=== PATIENT | female | born 1960 | race Caucasian/White ===

== ENCOUNTER 2017-06-03 15:58 | Emergency (ER) | payer MEDICARE, MEDICAID ==
[~2017-06-03] VITALS: Ht 162.6 cm; Wt 72.6 kg
[~2017-06-03 15:58] MED LIST: AMLO10TA2 PO; ASPI81CH43 PO; Atorvastatin Calcium PO; BENA40TA7 PO; CALC0.25; DOCU-94 PO; EPOE20006; FOLITAB45 OR; MAGN400T21 PO; ONDA4TAB5 PO; POT CHLORIDE; POT20T PO; [UNRECOGNIZED DRUG - OTHER]
[2017-06-04 00:05] VITALS: BP 117/74
== END 2017-06-04 00:24 | disposition home or self-care (01) ==
LOC: ER 16:08
DX: J40 Bronchitis, not specified as acute or chronic (principal); N18.9 Chronic kidney disease, unspecified
CPT/HCPCS: 71045

== ENCOUNTER 2021-05-10 19:35 | Inpatient (IN) | payer MEDICARE, MEDICAID ==
[~2021-05-10] VITALS: Ht 157.5 cm; Wt 71.0 kg
[~2021-05-10 19:35] MED LIST changes: +AMLO-496 PO; -AMLO10TA2 PO; -BENA40TA7 PO; +BENA40TA8 PO; +MAGN241.4 PO; -MAGN400T21 PO; +ONDA-144 PO; -ONDA4TAB5 PO
[2021-05-10 21:06] LABS: Basophils # (auto) 0 10 ^3/uL (0-0.2); Basophils % (auto) 0.1 % (0.0-2.0); Eosinophils # (auto) 0 10 ^3/uL (0-0.8); Eosinophils % (auto) 0.6 % (0.0-7.0); Hematocrit 37.4 % (36.0-46.0); Lymphocytes # (auto) 0.8 10 ^3/uL (0.4-5.4); Lymphocytes % (auto) 19.6 % (10.0-50.0); Mean Corpuscular Hemoglobin 30.4 pg (28.0-32.0); Mean Corpuscular Hgb Conc. 34.6 g/dL (32.0-36.0); Mean Corpuscular Volume 87.8 fL (80.0-100.0); Monocytes # (auto) 0.3 10 ^3/uL (0-1.3); Monocytes % (auto) 8.6 % (0.0-12.0); Neutrophils # (auto) 2.8 10 ^3/uL (1.6-8.6); Neutrophils % (auto) 71.1 % (37.0-80.0); Nucleated Red Blood Cells % 0.2 %; Red Blood Cells 4.26 10^6/uL (4.0-5.20); Red Cell Distribution Width 12.9 % (11.8-14.3)
[2021-05-10 21:28] LABS: Albumin 2.5 g/dL (3.4-5.0); BUN/Creatinine Ratio 26.1; Calcium 8.4 mg/dL (8.5-10.1); Potassium 3.9 mmol/L (3.5-5.1)
[2021-05-10 21:32] LABS: Bilirubin, Total 0.8 mg/dL (0.2-1.0); Total Protein 6.2 g/dL (6.4-8.2)
[2021-05-10] MEDS ORDERED: DexAMETHasone SOD PHOS 10MG/1ML VIAL INJ IV ONE (22:30)
[2021-05-10] MEDS ORDERED: DOCUSATE SOD 100 MG CAP PO PRN (23:45)
[2021-05-10] MEDS ORDERED: NITROGLYCERIN 0.4 MG SL TAB SL PRN (23:45)
[2021-05-10] MEDS ORDERED: ALBUMIN 25% 100 ML IV ONE (23:45)
[2021-05-10] MEDS ORDERED: ONDANSETRON HCL 4 MG/2 ML VIAL IV PRN (23:45)
[2021-05-10] MEDS ORDERED: SODIUM CHLORIDE 0.9% 1,000 ML IV SCH (23:45)
[2021-05-11 01:13] VITALS: BP 123/67
[2021-05-11] MEDS ORDERED: TACR1CAP4 PO (01:32)
[2021-05-11] MEDS ORDERED: MYCO250C4 PO (01:32)
[2021-05-11] MEDS ORDERED: PRE5T PO (01:32)
[2021-05-11] MEDS ORDERED: PANT40T PO (02:59)
[2021-05-11] MEDS ORDERED: CINA30TA14 PO (02:59)
[2021-05-11] MEDS ORDERED: ATOR10TA52 PO (02:59)
[2021-05-11 05:21] VITALS: BP 133/75
[2021-05-11 07:24] LABS: Red Cell Distribution Width 13.3 % (11.8-14.3)
[2021-05-11 07:26] LABS: Hematocrit 35.9 % (36.0-46.0); Hemoglobin 12.8 g/dL (12.2-16.2); Mean Corpuscular Hgb Conc. 35.5 g/dL (32.0-36.0); Mean Corpuscular Volume 87.1 fL (80.0-100.0); Red Blood Cells 4.12 10^6/uL (4.0-5.20)
[2021-05-11 07:36] LABS: Potassium 4.2 mmol/L (3.5-5.1)
[2021-05-11 07:42] LABS: Albumin 2.9 g/dL (3.4-5.0); Bilirubin, Total 0.8 mg/dL (0.2-1.0); Calcium 8.5 mg/dL (8.5-10.1); Total Protein 6.2 g/dL (6.4-8.2)
[2021-05-11 08:12] LABS: White Blood Cell 1.7 10^3/uL (4.4-10.8)
[2021-05-11 08:13] LABS: Basophils % (manual) 0 (0.0-2.0); Eosinophils % (manual) 0 (0-7); Metamyelocytes % 0
[2021-05-11 08:14] LABS: Blast Cells 0; Myelocytes % 0; Promyelocytes % 0; Reactive Lymphocytes 0
[2021-05-11 09:00] VITALS: BP 115/61
[2021-05-11] MEDS: DexAMETHasone SOD PHOS 10MG/1ML VIAL INJ IV SCH (09:59)
[2021-05-11] MEDS: FAMOTIDINE (10MG/ML) 2ML VL IV SCH ×2 (09:59→21:36)
[2021-05-11] MEDS: CHOLECALCIFEROL (VITD3) 2,000 UNIT CAP/TAB PO SCH (10:00)
[2021-05-11] MEDS: AZITHROMYCIN 500MG/ 250ML 250 ML IV SCH (10:00)
[2021-05-11] MEDS: ASCORBIC ACID 1,000 MG TAB PO SCH (10:00)
[2021-05-11] MEDS: ASPirin 81 mg TAB PO SCH (10:00)
[2021-05-11] MEDS ORDERED: ENOXAPARIN SOD 40 MG/0.4 ML SYRINGE SC SCH (10:00)
[2021-05-11] MEDS: BUDESONIDE (INHALATION) 180 MCG IH IN SCH ×2 (10:00→22:00)
[2021-05-11] MEDS: ZINC SULFATE 220mg CAP or TAB PO SCH (10:00)
[2021-05-11] MEDS: MULTIPLE VITAMIN TAB PO SCH (10:00)
[2021-05-11 13:00] VITALS: BP 121/66
[2021-05-11] MEDS ORDERED: REMDESIVIR PER PHARMACY 0 ML IV SCH (13:00)
[2021-05-11] MEDS ORDERED: FUROSEMIDE 20 MG/2 ML VIAL IV ONE (13:00)
[2021-05-11] MEDS ORDERED: cefTRIAXone 1GM/50ML D5W 50 ML IV ONE (13:00)
[2021-05-11] MEDS: TACROLIMUS 1 MG CAP PO SCH ×2 (13:00→22:00)
[2021-05-11] MEDS: MYCOPHENOLATE 500 MG TAB PO SCH ×2 (14:15→21:36)
[2021-05-11] MEDS ORDERED: REMDESIVIR 200 MG in NS 210ml LOADING DOSE ADULT IV ONE (15:00)
[2021-05-11 15:50] LABS: Band Neutrophils % (manual) 1; Lymphocytes % (manual) 16 (10.0-50.0); Monocytes % (manual) 5 (0-12)
[2021-05-11 17:00] VITALS: BP 129/69
[2021-05-11 18:23] LABS: Urine Bacteria FEW /hpf (None Seen); Urine Blood Negative /uL (Negative); Urine Specific Gravity 1.009 (1.001-1.035); Urine WBC <1 /hpf (0 - 5)
[2021-05-11 21:25] VITALS: BP 134/80
[2021-05-11] MEDS: ENOXAPARIN SOD 40 MG/0.4 ML SYRINGE SC SCH (21:37)
[2021-05-12 05:00] VITALS: BP 129/63
[2021-05-12 05:46] LABS: Basophils # (auto) 0 10 ^3/uL (0-0.2); Basophils % (auto) 0.1 % (0.0-2.0); Eosinophils # (auto) 0 10 ^3/uL (0-0.8); Hematocrit 37.5 % (36.0-46.0); Lymphocytes # (auto) 0.6 10 ^3/uL (0.4-5.4); Lymphocytes % (auto) 12.1 % (10.0-50.0); Mean Corpuscular Hemoglobin 30.2 pg (28.0-32.0); Mean Corpuscular Hgb Conc. 34.7 g/dL (32.0-36.0); Mean Corpuscular Volume 86.9 fL (80.0-100.0); Monocytes # (auto) 0.4 10 ^3/uL (0-1.3); Monocytes % (auto) 8.5 % (0.0-12.0); Neutrophils # (auto) 4.2 10 ^3/uL (1.6-8.6); Neutrophils % (auto) 79.3 % (37.0-80.0); Nucleated Red Blood Cells % 0.1 %; Red Blood Cells 4.31 10^6/uL (4.0-5.20); Red Cell Distribution Width 13.1 % (11.8-14.3); White Blood Cell 5.2 10^3/uL (4.4-10.8)
[2021-05-12] MEDS: BUDESONIDE (INHALATION) 180 MCG IH IN SCH ×2 (05:48→22:12)
[2021-05-12] MEDS: ALBUTEROL SULF HFA 90MCG INH 200DOSE IN PRN ×2 (05:48→22:38)
[2021-05-12 05:57] LABS: Albumin 2.7 g/dL (3.4-5.0); BUN/Creatinine Ratio 25.4; Potassium 3.8 mmol/L (3.5-5.1)
[2021-05-12 05:59] LABS: Bilirubin, Total 0.6 mg/dL (0.2-1.0)
[2021-05-12 09:00] VITALS: BP 128/61
[2021-05-12] MEDS: AZITHROMYCIN 500MG/ 250ML 250 ML IV SCH (11:00)
[2021-05-12] MEDS: FAMOTIDINE (10MG/ML) 2ML VL IV SCH ×2 (11:12→21:31)
[2021-05-12] MEDS: FUROSEMIDE 20 MG/2 ML VIAL IV SCH (11:12)
[2021-05-12] MEDS: cefTRIAXone 1GM/50ML D5W 50 ML IV SCH (11:12)
[2021-05-12] MEDS: DexAMETHasone SOD PHOS 10MG/1ML VIAL INJ IV SCH (11:12)
[2021-05-12] MEDS: MULTIPLE VITAMIN TAB PO SCH (11:13)
[2021-05-12] MEDS: MYCOPHENOLATE 500 MG TAB PO SCH ×2 (11:13→21:31)
[2021-05-12] MEDS: ASPirin 81 mg TAB PO SCH (11:13)
[2021-05-12] MEDS: ZINC SULFATE 220mg CAP or TAB PO SCH (11:13)
[2021-05-12] MEDS: ASCORBIC ACID 1,000 MG TAB PO SCH (11:14)
[2021-05-12] MEDS: CHOLECALCIFEROL (VITD3) 2,000 UNIT CAP/TAB PO SCH (11:14)
[2021-05-12] MEDS: ENOXAPARIN SOD 40 MG/0.4 ML SYRINGE SC SCH ×2 (11:20→21:32)
[2021-05-12] MEDS: TACROLIMUS 1 MG CAP PO SCH ×2 (11:21→21:31)
[2021-05-12 12:41] VITALS: BP 113/74
[2021-05-12] MEDS: REMDESIVIR 100mg 100 MG in SODIUM CHL 0.9% 230 ML IV SCH (16:52)
[2021-05-12 22:00] VITALS: BP 132/64
[2021-05-13 05:00] VITALS: BP 115/66
[2021-05-13 05:25] LABS: Basophils # (auto) 0 10 ^3/uL (0-0.2); Basophils % (auto) 0.1 % (0.0-2.0); Eosinophils # (auto) 0 10 ^3/uL (0-0.8); Hematocrit 39.4 % (36.0-46.0); Hemoglobin 13.5 g/dL (12.2-16.2); Lymphocytes # (auto) 0.6 10 ^3/uL (0.4-5.4); Lymphocytes % (auto) 8.9 % (10.0-50.0); Mean Corpuscular Hemoglobin 29.9 pg (28.0-32.0); Mean Corpuscular Hgb Conc. 34.2 g/dL (32.0-36.0); Mean Corpuscular Volume 87.4 fL (80.0-100.0); Monocytes # (auto) 0.5 10 ^3/uL (0-1.3); Monocytes % (auto) 7.1 % (0.0-12.0); Neutrophils # (auto) 5.5 10 ^3/uL (1.6-8.6); Neutrophils % (auto) 83.9 % (37.0-80.0); Nucleated Red Blood Cells % 0.1 %; Red Blood Cells 4.51 10^6/uL (4.0-5.20); Red Cell Distribution Width 13.2 % (11.8-14.3); White Blood Cell 6.5 10^3/uL (4.4-10.8)
[2021-05-13 05:41] LABS: Potassium 3.9 mmol/L (3.5-5.1)
[2021-05-13 05:58] LABS: Albumin 2.9 g/dL (3.4-5.0); BUN/Creatinine Ratio 32.8; Bilirubin, Total 0.6 mg/dL (0.2-1.0); Calcium 8.9 mg/dL (8.5-10.1); Total Protein 5.4 g/dL (6.4-8.2)
[2021-05-13] MEDS: BUDESONIDE (INHALATION) 180 MCG IH IN SCH ×2 (06:35→20:06)
[2021-05-13] MEDS: ALBUTEROL SULF HFA 90MCG INH 200DOSE IN PRN ×2 (07:21→20:06)
[2021-05-13 08:57] VITALS: BP 116/61
[2021-05-13] MEDS: DexAMETHasone SOD PHOS 10MG/1ML VIAL INJ IV SCH (09:57)
[2021-05-13] MEDS: cefTRIAXone 1GM/50ML D5W 50 ML IV SCH (09:57)
[2021-05-13] MEDS: FAMOTIDINE (10MG/ML) 2ML VL IV SCH ×2 (09:58→21:58)
[2021-05-13] MEDS: FUROSEMIDE 20 MG/2 ML VIAL IV SCH (09:58)
[2021-05-13] MEDS: ZINC SULFATE 220mg CAP or TAB PO SCH (09:59)
[2021-05-13] MEDS: MYCOPHENOLATE 500 MG TAB PO SCH ×2 (09:59→21:59)
[2021-05-13] MEDS: ASPirin 81 mg TAB PO SCH (09:59)
[2021-05-13] MEDS: ASCORBIC ACID 1,000 MG TAB PO SCH (10:00)
[2021-05-13] MEDS: TACROLIMUS 1 MG CAP PO SCH ×2 (10:00→21:59)
[2021-05-13] MEDS: CHOLECALCIFEROL (VITD3) 2,000 UNIT CAP/TAB PO SCH (10:00)
[2021-05-13] MEDS: MULTIPLE VITAMIN TAB PO SCH (10:00)
[2021-05-13] MEDS: ENOXAPARIN SOD 40 MG/0.4 ML SYRINGE SC SCH ×2 (10:01→21:59)
[2021-05-13] MEDS: AZITHROMYCIN 500MG/ 250ML 250 ML IV SCH (12:32)
[2021-05-13 13:00] VITALS: BP 131/67
[2021-05-13] MEDS ORDERED: DEXTROSE (50%) 50ML SYRG IV PRN (14:30)
[2021-05-13] MEDS: REMDESIVIR 100mg 100 MG in SODIUM CHL 0.9% 230 ML IV SCH (16:10)
[2021-05-13 17:00] VITALS: BP 125/72
[2021-05-13] MEDS: ACCU-CHEK COMFORT CURVE STRIP VI SCH ×2 (17:00→21:59)
[2021-05-13] MEDS: InsuLIN REG 1unit/0.01ml Soln (100units/ml) SC SCH ×2 (18:08→22:00)
[2021-05-13 22:00] VITALS: BP 135/97
[2021-05-14 05:00] VITALS: BP 120/69
[2021-05-14 05:58] LABS: Basophils # (auto) 0 10 ^3/uL (0-0.2); Basophils % (auto) 0.1 % (0.0-2.0); Eosinophils # (auto) 0 10 ^3/uL (0-0.8); Hemoglobin 13.7 g/dL (12.2-16.2); Lymphocytes # (auto) 0.7 10 ^3/uL (0.4-5.4); Lymphocytes % (auto) 11.1 % (10.0-50.0); Mean Corpuscular Hemoglobin 29.8 pg (28.0-32.0); Mean Corpuscular Hgb Conc. 34.2 g/dL (32.0-36.0); Mean Corpuscular Volume 87.2 fL (80.0-100.0); Monocytes # (auto) 0.6 10 ^3/uL (0-1.3); Monocytes % (auto) 9.5 % (0.0-12.0); Neutrophils # (auto) 5.2 10 ^3/uL (1.6-8.6); Neutrophils % (auto) 79.3 % (37.0-80.0); Nucleated Red Blood Cells % 0.1 %; Red Blood Cells 4.59 10^6/uL (4.0-5.20); Red Cell Distribution Width 12.8 % (11.8-14.3); White Blood Cell 6.6 10^3/uL (4.4-10.8)
[2021-05-14] MEDS: ACCU-CHEK COMFORT CURVE STRIP VI SCH ×4 (06:25→23:00)
[2021-05-14] MEDS: InsuLIN REG 1unit/0.01ml Soln (100units/ml) SC SCH ×5 (06:25→23:02)
[2021-05-14] MEDS: ALBUTEROL SULF HFA 90MCG INH 200DOSE IN PRN ×2 (06:39→19:35)
[2021-05-14] MEDS: BUDESONIDE (INHALATION) 180 MCG IH IN SCH ×2 (06:39→19:35)
[2021-05-14 06:43] LABS: Albumin 2.8 g/dL (3.4-5.0); BUN/Creatinine Ratio 32.8; Calcium 9.2 mg/dL (8.5-10.1); Potassium 3.3 mmol/L (3.5-5.1)
[2021-05-14 06:46] LABS: Bilirubin, Total 0.6 mg/dL (0.2-1.0); Total Protein 5.7 g/dL (6.4-8.2)
[2021-05-14] MEDS: Nepro With Carbsteady ButterPecan 8oz Carton PO SCH ×3 (08:00→18:14)
[2021-05-14 09:00] VITALS: BP 100/53
[2021-05-14] MEDS: AZITHROMYCIN 500MG/ 250ML 250 ML IV SCH (10:30)
[2021-05-14] MEDS: DexAMETHasone SOD PHOS 10MG/1ML VIAL INJ IV SCH (10:30)
[2021-05-14] MEDS: FAMOTIDINE (10MG/ML) 2ML VL IV SCH ×2 (10:30→22:00)
[2021-05-14] MEDS: cefTRIAXone 1GM/50ML D5W 50 ML IV SCH (10:30)
[2021-05-14] MEDS: ASPirin 81 mg TAB PO SCH (10:31)
[2021-05-14] MEDS: ENOXAPARIN SOD 40 MG/0.4 ML SYRINGE SC SCH ×2 (10:31→23:00)
[2021-05-14] MEDS: TACROLIMUS 1 MG CAP PO SCH ×2 (10:31→22:59)
[2021-05-14] MEDS: MULTIPLE VITAMIN TAB PO SCH (10:31)
[2021-05-14] MEDS: CHOLECALCIFEROL (VITD3) 2,000 UNIT CAP/TAB PO SCH (10:31)
[2021-05-14] MEDS: MYCOPHENOLATE 500 MG TAB PO SCH ×2 (11:52→22:57)
[2021-05-14] MEDS ORDERED: POTASSIUM CHL 20 Meq TABLET PO ONE (12:30)
[2021-05-14 13:03] VITALS: BP 119/68
[2021-05-14] MEDS: REMDESIVIR 100mg 100 MG in SODIUM CHL 0.9% 230 ML IV SCH (15:30)
[2021-05-14 17:00] VITALS: BP 124/60
[2021-05-14 21:50] VITALS: BP 123/58
[2021-05-14] MEDS ORDERED: ATORVASTATIN 20 MG TAB PO SCH (22:00)
[2021-05-15 05:00] VITALS: BP 108/63
[2021-05-15 06:06] LABS: Basophils # (auto) 0 10 ^3/uL (0-0.2); Basophils % (auto) 0.1 % (0.0-2.0); Eosinophils # (auto) 0 10 ^3/uL (0-0.8); Eosinophils % (auto) 0.1 % (0.0-7.0); Hematocrit 38.9 % (36.0-46.0); Hemoglobin 13.5 g/dL (12.2-16.2); Lymphocytes # (auto) 0.8 10 ^3/uL (0.4-5.4); Lymphocytes % (auto) 9.2 % (10.0-50.0); Mean Corpuscular Hemoglobin 30.5 pg (28.0-32.0); Mean Corpuscular Hgb Conc. 34.7 g/dL (32.0-36.0); Monocytes # (auto) 0.9 10 ^3/uL (0-1.3); Monocytes % (auto) 9.9 % (0.0-12.0); Neutrophils % (auto) 80.7 % (37.0-80.0); Red Blood Cells 4.42 10^6/uL (4.0-5.20); Red Cell Distribution Width 12.8 % (11.8-14.3); White Blood Cell 8.7 10^3/uL (4.4-10.8)
[2021-05-15 06:24] LABS: Potassium 3.9 mmol/L (3.5-5.1)
[2021-05-15 06:31] LABS: Albumin 2.6 g/dL (3.4-5.0); BUN/Creatinine Ratio 41.7; Bilirubin, Total 0.7 mg/dL (0.2-1.0); Calcium 8.8 mg/dL (8.5-10.1); Total Protein 5.5 g/dL (6.4-8.2)
[2021-05-15] MEDS: ACCU-CHEK COMFORT CURVE STRIP VI SCH ×3 (07:03→17:00)
[2021-05-15] MEDS: InsuLIN REG 1unit/0.01ml Soln (100units/ml) SC SCH ×3 (07:04→17:00)
[2021-05-15] MEDS: BUDESONIDE (INHALATION) 180 MCG IH IN SCH (07:19)
[2021-05-15] MEDS: ALBUTEROL SULF HFA 90MCG INH 200DOSE IN PRN (07:19)
[2021-05-15] MEDS: Nepro With Carbsteady ButterPecan 8oz Carton PO SCH ×3 (08:00→18:06)
[2021-05-15 08:37] VITALS: BP 97/55
[2021-05-15] MEDS: cefTRIAXone 1GM/50ML D5W 50 ML IV SCH (09:00)
[2021-05-15] MEDS: MYCOPHENOLATE 500 MG TAB PO SCH (10:00)
[2021-05-15] MEDS: MULTIPLE VITAMIN TAB PO SCH (10:00)
[2021-05-15] MEDS: TACROLIMUS 1 MG CAP PO SCH (10:00)
[2021-05-15] MEDS: ASPirin 81 mg TAB PO SCH (10:00)
[2021-05-15] MEDS: DexAMETHasone SOD PHOS 10MG/1ML VIAL INJ IV SCH (10:00)
[2021-05-15] MEDS: ENOXAPARIN SOD 40 MG/0.4 ML SYRINGE SC SCH (10:00)
[2021-05-15] MEDS: FAMOTIDINE (10MG/ML) 2ML VL IV SCH (10:00)
[2021-05-15] MEDS: AZITHROMYCIN 500MG/ 250ML 250 ML IV SCH (10:00)
[2021-05-15] MEDS: CHOLECALCIFEROL (VITD3) 2,000 UNIT CAP/TAB PO SCH (10:00)
[2021-05-15 11:52] VITALS: BP 92/53
[2021-05-15] MEDS: REMDESIVIR 100mg 100 MG in SODIUM CHL 0.9% 230 ML IV SCH (15:00)
[2021-05-15 16:39] VITALS: BP 101/61
[2021-05-15 19:30] VITALS: BP 120/58
== END 2021-05-15 19:30 | disposition home or self-care (01) | DRG 871 ==
LOC: ER 19:35 → EDBD 19:35 → TELE 23:31 → TELE-EAST 23:51 → TELE-E-ADS 05-13 20:23
PROVIDERS: ADMIT Nurse Practitioner Family; ATTEND Internal Medicine
PROC: XW033E5 Introduction of Remdesivir Anti-infective into Peripheral Vein, Percutaneous Approach, New Technology Group 5 (ICD-10-PCS; principal; 2021-05-11)
DX: A41.89 Other specified sepsis (principal); U07.1 COVID-19; J12.82 Pneumonia due to coronavirus disease 2019; J96.01 Acute respiratory failure with hypoxia; N18.6 End stage renal disease; Z94.0 Kidney transplant status; I12.0 Hypertensive chronic kidney disease with stage 5 chronic kidney disease or end stage renal disease; D89.839 Cytokine release syndrome, grade unspecified; E88.09 Other disorders of plasma-protein metabolism, not elsewhere classified; R65.20 Severe sepsis without septic shock; E11.22 Type 2 diabetes mellitus with diabetic chronic kidney disease; E78.5 Hyperlipidemia, unspecified; F32.A Depression, unspecified; I25.10 Atherosclerotic heart disease of native coronary artery without angina pectoris; Z91.19 Patient's noncompliance with other medical treatment and regimen; R00.1 Bradycardia, unspecified; Z88.1 Allergy status to other antibiotic agents; Z88.5 Allergy status to narcotic agent
CPT/HCPCS: 36415; 36600; 70450; 71045; 80053; 80197; 81001; 82728; 82805; 82962; 83036; 83605; 83615; 83735; 83880; 84443; 84484; 85007; 85025; 85027; 85379; 86141; 87040; 87426; 93005; 93306; 93970; 94640; 96365; 96372; 96375; 97163; 99291; G0378; J0696; J1100; J1815; J3490; J7507; J7517; P9047

== ENCOUNTER 2023-05-23 15:22 | Inpatient (IN) | payer OTHER, MEDICAID ==
[~2023-05-23] VITALS: Ht 160 cm; Wt 67.0 kg
[~2023-05-23 15:22] MED LIST changes: -AMLO-496 PO; -ASPI81CH43 PO; +ATOR10TA52 PO; -Atorvastatin Calcium PO; -BENA40TA8 PO; -CALC0.25; +CINA30TA14 PO; -DOCU-94 PO; -EPOE20006; -FOLITAB45 OR; +MYCO250C4 PO; -ONDA-144 PO; +PANT40T PO; -POT CHLORIDE; -POT20T PO; +PRE5T PO; +TACR1CAP4 PO; -[UNRECOGNIZED DRUG - OTHER]
[2023-05-23] MEDS: DEXTROSE (50%) 50ML SYRG IV ONE (15:44)
[2023-05-23] MEDS: SODIUM CHLORIDE 0.9% 1,000 ML IVB ONE (15:44)
[2023-05-23 15:59] VITALS: PULSE 97; RESP 21; O2SAT 94
[2023-05-23 16:26] LABS: Amphetamine Screen, Urine Neg (NEGATIVE); Barbiturate Scree,Urine Neg (NEGATIVE); Benzodiazephine Screen, Urine Neg (NEGATIVE); Cannabinoid Screen, Urine Neg (NEGATIVE); Cocaine Screen, Urine Neg (NEGATIVE); Opiate Scree,Urine Neg (NEGATIVE); Phencyclidine Screen, Urine Neg (NEGATIVE); Urine Bacteria NONE SEEN /hpf (None Seen); Urine Blood Negative /uL (Negative); Urine Clarity HAZY (Clear); Urine Color Yellow (Yellow); Urine Mucus FEW (None Seen); Urine Protein, UAD 1+ (Negative); Urine Specific Gravity 1.026 (1.001-1.035); Urine WBC 64 /hpf (0 - 5)
[2023-05-23 16:27] LABS: Basophils # (auto) 0 10 ^3/uL (0-0.2); Basophils % (auto) 0.3 % (0.0-2.0); Hemoglobin 9.1 g/dL (12.2-16.2); Lymphocytes # (auto) 0.5 10 ^3/uL (0.4-5.4); White Blood Cell 10.9 10^3/uL (4.4-10.8)
[2023-05-23 16:28] LABS: Eosinophils # (auto) 0 10 ^3/uL (0-0.8); Eosinophils % (auto) 0.3 % (0.0-7.0); Hematocrit 28.7 % (36.0-46.0); Lymphocytes % (auto) 4.9 % (10.0-50.0); Mean Corpuscular Hgb Conc. 31.6 g/dL (32.0-36.0); Mean Corpuscular Volume 85.3 fL (80.0-100.0); Monocytes # (auto) 0.8 10 ^3/uL (0-1.3); Monocytes % (auto) 7.6 % (0.0-12.0); Neutrophils # (auto) 9.5 10 ^3/uL (1.6-8.6); Neutrophils % (auto) 86.9 % (37.0-80.0); Red Blood Cells 3.37 10^6/uL (4.0-5.20); Red Cell Distribution Width 16.1 % (11.8-14.3)
[2023-05-23 16:42] LABS: INR 1.92 (0.9-1.15); Partial Thromboplastin Time 35.6 SEC (24.5-34.5); Prothrombin Time 19.3 sec (9.3-11.8)
[2023-05-23 16:47] LABS: Alanine Aminotransferase 77 U/L (7-40); Albumin 2.5 g/dL (3.2-4.8); Alkaline Phosphatase 495 U/L (46-116); Anion Gap 9 (5-15); Aspartate Aminotransferase 177 U/L (13-40); BUN/Creatinine Ratio 21.3 (10.0-20.0); Bilirubin, Total 1.1 mg/dL (0.2-1.0); Blood Urea Nitrogen 13 mg/dL (9-23); Calcium 7.2 mg/dL (8.7-10.4); Carbon Dioxide 22 mmol/L (20-30); Chloride 99 mmol/L (98-107); Glucose 335 mg/dL (74-106); Magnesium 1.3 mg/dL (1.6-2.6); Potassium 4.4 mmol/L (3.5-5.1); Sodium 130 mmol/L (136-145); Total Protein 4.2 g/dL (5.7-8.2)
[2023-05-23 17:10] LABS: Lactic Acid w/Reflex 3.6 mmol/L (0.4-2.0)
[2023-05-23 17:45] LABS: Base Excess -2.4 mmol/L (-2.0-2.0)
[2023-05-23] MEDS: MAGNESIUM SULFATE 1GM/100ML 100 ML IV SCH (17:45)
[2023-05-23] MEDS ORDERED: MULT-1188 PO (18:36)
[2023-05-23] MEDS ORDERED: MYCO200S PO (18:36)
[2023-05-23] MEDS ORDERED: METF-370 PO (18:36)
[2023-05-23] MEDS ORDERED: FOLI400T15 PO (18:36)
[2023-05-23] MEDS ORDERED: APIX5TAB PO (18:36)
[2023-05-23] MEDS ORDERED: PRE1T PO (18:36)
[2023-05-23] MEDS ORDERED: MAGN400T40 PO (18:36)
[2023-05-23] MEDS ORDERED: PANT40TA2 PO (18:36)
[2023-05-23] MEDS ORDERED: LACTULOSE 20Gm/30ML SOLN PO PRN (18:45)
[2023-05-23] MEDS: cefTRIAXone 1GM/50ML D5W 50 ML IV SCH (19:14)
[2023-05-23 19:30] VITALS: PULSE 98; RESP 17; O2SAT 100
[2023-05-23] MEDS ORDERED: MORPHINE SULFATE INJ 2 MG/ml SYRG IV PRN (20:00)
[2023-05-23] MEDS ORDERED: NITROGLYCERIN 0.4 MG SL TAB SL PRN (20:00)
[2023-05-23] MEDS: SODIUM CHLORIDE 0.9% 500 ML IV ONE (20:00)
[2023-05-23] MEDS: APIXABAN 5 MG TAB PO SCH (21:16)
[2023-05-23] MEDS: MYCOPHENOLATE 250 MG CAP PO SCH (21:16)
[2023-05-23] MEDS: ATORVASTATIN 20 MG TAB PO SCH (21:17)
[2023-05-23] MEDS: MULTIPLE VITAMINS W/ MINERALS TAB PO SCH (21:18)
[2023-05-23] MEDS: TACROLIMUS 1 MG CAP PO SCH (21:18)
[2023-05-23 21:41] LABS: Lactic Acid w/Reflex 2.9 mmol/L (0.4-2.0)
[2023-05-23 23:08] LABS: Lactic Acid w/Reflex 3.1 mmol/L (0.4-2.0)
[2023-05-23 23:11] VITALS: BP 109/69; PULSE 67; RESP 18; TEMP 98.3; O2SAT 92
[2023-05-24] VITALS (41 sets, daily range): BP systolic 81–119; BP diastolic 49–79; PULSE 78–104; RESP 15–22; TEMP 98.2–99.5; O2SAT 83–100
[2023-05-24] MEDS: SODIUM CHLORIDE 0.9% 500 ML IV ONE ×2 (00:16→03:30)
[2023-05-24] MEDS: CINACALCET HYDROCHLORIDE 30 MG TAB PO SCH (10:00)
[2023-05-24] MEDS ORDERED: MAGNESIUM OXIDE 400 MG TAB PO SCH (10:00)
[2023-05-24] MEDS: PANTOPRAZOLE 40 MG TAB PO SCH (10:00)
[2023-05-24] MEDS: predniSONE 5 MG TAB PO SCH (10:00)
[2023-05-24] MEDS: OPTISON 3ml Vial for INJ IV ONE (11:15)
[2023-05-24] MEDS ORDERED: ENOXAPARIN SOD 80 MG/0.8ML SYRINGE SC SCH (13:45)
[2023-05-24 14:01] LABS: Basophils # (auto) 0 10 ^3/uL (0-0.2); Basophils % (auto) 0.3 % (0.0-2.0); Eosinophils # (auto) 0.1 10 ^3/uL (0-0.8); Eosinophils % (auto) 0.4 % (0.0-7.0); Hemoglobin 10.6 g/dL (12.2-16.2)
[2023-05-24 14:04] LABS: Lymphocytes # (auto) 0.9 10 ^3/uL (0.4-5.4); Lymphocytes % (auto) 6.5 % (10.0-50.0); Mean Corpuscular Hemoglobin 26.7 pg (28.0-32.0); Mean Corpuscular Hgb Conc. 31.3 g/dL (32.0-36.0); Mean Corpuscular Volume 85.3 fL (80.0-100.0); Monocytes # (auto) 1.2 10 ^3/uL (0-1.3); Monocytes % (auto) 8.3 % (0.0-12.0); Neutrophils # (auto) 12.1 10 ^3/uL (1.6-8.6); Neutrophils % (auto) 84.5 % (37.0-80.0); Nucleated Red Blood Cells % 0.1 %; Red Blood Cells 3.98 10^6/uL (4.0-5.20); Red Cell Distribution Width 16.3 % (11.8-14.3); White Blood Cell 14.3 10^3/uL (4.4-10.8)
[2023-05-24] MEDS: ETOMIDATE (2MG/ML) 20ML VIAL IV ONE ×2 (14:05→15:43)
[2023-05-24] MEDS: NOREPINEPHRINE 8 MG/250ML KIT 250 ML IV ONE (14:06)
[2023-05-24] MEDS: fentaNYL Drip 2500mCg/250mlNS 250 ML IV ONE (14:10)
[2023-05-24] MEDS: SUCCINYLCHOLINE CHLORIDE 20 MG/ML 10ML VIAL IV ONE (14:30)
[2023-05-24 14:33] LABS: Alanine Aminotransferase 95 U/L (7-40); Albumin 2.7 g/dL (3.2-4.8); Alkaline Phosphatase 576 U/L (46-116); Anion Gap 10 (5-15); Aspartate Aminotransferase 192 U/L (13-40); BUN/Creatinine Ratio 14.9 (10.0-20.0); Blood Urea Nitrogen 11 mg/dL (9-23); Calcium 7.8 mg/dL (8.5-10.1); Carbon Dioxide 20 mmol/L (20-30); Chloride 101 mmol/L (98-107); Cholesterol 101 mg/dL (< 200); Glucose 205 mg/dL (74-106); HDL Cholesterol 13 mg/dL (40-59); LDL Cholesterol 62 mg/dL (< 100); Potassium 4.1 mmol/L (3.5-5.1); Sodium 131 mmol/L (136-145); Triglycerides 137 mg/dL (< 150)
[2023-05-24 14:34] LABS: Bilirubin, Total 1.4 mg/dL (0.2-1.0)
[2023-05-24 14:35] LABS: Lactic Acid w/Reflex 2.8 mmol/L (0.4-2.0)
[2023-05-24 14:44] LABS: Magnesium 2.2 mg/dL (1.6-2.6)
[2023-05-24] MEDS: MIDAZOLAM DRIP 50 mg/50mL 50 ML IV ONE (15:41)
[2023-05-24] MEDS: SODIUM CHLORIDE 0.9% 1,000 ML IV ONE (15:41)
[2023-05-24] MEDS: fentaNYL Drip 2500mCg/250mlNS 250 ML IV SCH (15:42)
[2023-05-24] MEDS: ROCURONIUM 10MG/ML 10ML VIAL IV ONE (15:44)
[2023-05-24] MEDS: IOHEXOL 350 MG/ML 100ML IJ ONE (16:21)
[2023-05-24 16:59] LABS: Base Excess -6.6 mmol/L (-2.0-2.0)
[2023-05-24] MEDS: MYCOPHENOLATE 500 MG TAB PO SCH (21:16)
[2023-05-24] MEDS: ENOXAPARIN SOD 80 MG/0.8ML SYRINGE SC SCH (21:16)
[2023-05-25] VITALS (109 sets, daily range): BP systolic 81–154; BP diastolic 31–77; PULSE 88–111; RESP 16–30; TEMP 97.9–99.7; O2SAT 97–100
[2023-05-25 07:35] LABS: Base Excess -8.9 mmol/L (-2.0-2.0)
[2023-05-25 11:11] LABS: Hematocrit 53.1 % (36.0-46.0); Hemoglobin 16.3 g/dL (12.2-16.2); Mean Corpuscular Hemoglobin 26.9 pg (28.0-32.0); Mean Corpuscular Hgb Conc. 30.6 g/dL (32.0-36.0); Mean Corpuscular Volume 87.9 fL (80.0-100.0); Red Blood Cells 6.04 10^6/uL (4.0-5.20); Red Cell Distribution Width 17.5 % (11.8-14.3)
[2023-05-25 11:22] LABS: White Blood Cell 31.5 10^3/uL (4.4-10.8)
[2023-05-25 11:54] LABS: Basophils % (manual) 0 (0.0-2.0); Blast Cells 0; Myelocytes % 0; Promyelocytes % 0; Reactive Lymphocytes 0
[2023-05-25 11:56] LABS: Eosinophils % (manual) 1 (0-7); Lymphocytes % (manual) 9 (10.0-50.0); Metamyelocytes % 1
[2023-05-25 11:57] LABS: Anisocytosis Slight; Band Neutrophils % (manual) 5; Hypochromia Slight; Monocytes % (manual) 13 (0-12)
[2023-05-25 11:58] LABS: Platelet Estimate Markedly Decreased
[2023-05-25] MEDS: NOREPINEPHRINE 8 MG/250ML KIT 250 ML IV SCH (13:00)
[2023-05-25] MEDS: SODIUM BICARB 50mEq/50ml Vial 50 ML in D5W/SOD CHL 0.45% 1,000 ML IV SCH (14:14)
[2023-05-25] MEDS: PANTOPRAZOLE 40 MG/10 ML VIAL INJ IV SCH (14:14)
[2023-05-25] MEDS: ENOXAPARIN SOD 80 MG/0.8ML SYRINGE SC ONE (14:14)
[2023-05-25] MEDS: methylPREDNISolone SOD SUCC 40 MG/ML VL IV SCH (14:15)
[2023-05-25] MEDS: MIDAZOLAM DRIP 50 mg/50mL 50 ML IV SCH (14:16)
[2023-05-25 16:41] LABS: Alanine Aminotransferase 142 U/L (7-40); Albumin 2.5 g/dL (3.2-4.8); Alkaline Phosphatase 554 U/L (46-116); Anion Gap 14 (5-15); Aspartate Aminotransferase 315 U/L (13-40); BUN/Creatinine Ratio 17.5 (10.0-20.0); Blood Urea Nitrogen 18 mg/dL (9-23); Calcium 7.9 mg/dL (8.7-10.4); Carbon Dioxide 15 mmol/L (20-30); Chloride 104 mmol/L (98-107); Glucose 212 mg/dL (74-106); Magnesium 2.3 mg/dL (1.6-2.6); Potassium 4.7 mmol/L (3.5-5.1); Sodium 133 mmol/L (136-145)
[2023-05-25 16:42] LABS: Bilirubin, Total 0.9 mg/dL (0.2-1.0); Phosphorus 5.3 mg/dL (2.4-5.1); Total Protein 4.7 g/dL (5.7-8.2)
[2023-05-25 16:44] LABS: Protein, CSF 58.7 mg/dL (15-45)
[2023-05-25 16:46] LABS: CSF White Blood Cells 17 CUMM (0-5)
[2023-05-25] MEDS ORDERED: DEXTROSE (50%) 50ML SYRG IV PRN (19:30)
[2023-05-25] MEDS: LACTULOSE 20Gm/30ML SOLN NG SCH (21:40)
[2023-05-25] MEDS: ACCU-CHEK COMFORT CURVE STRIP VI SCH (23:24)
[2023-05-25] MEDS: InsuLIN REG 1unit/0.01ml Soln (100units/ml) SC SCH (23:24)
[2023-05-26] VITALS (108 sets, daily range): BP systolic 75–115; BP diastolic 37–80; PULSE 10–115; RESP 15–26; TEMP 96.4–99.5; O2SAT 91–100
[2023-05-26 03:49] LABS: Eosinophils # (auto) 0.1 10 ^3/uL (0-0.8); Hemoglobin 10.2 g/dL (12.2-16.2); White Blood Cell 16.5 10^3/uL (4.4-10.8)
[2023-05-26 03:51] LABS: Basophils # (auto) 0 10 ^3/uL (0-0.2); Basophils % (auto) 0.2 % (0.0-2.0); Eosinophils % (auto) 0.3 % (0.0-7.0); Hematocrit 32.4 % (36.0-46.0); Lymphocytes # (auto) 1.3 10 ^3/uL (0.4-5.4); Lymphocytes % (auto) 7.7 % (10.0-50.0); Mean Corpuscular Hemoglobin 26.7 pg (28.0-32.0); Mean Corpuscular Hgb Conc. 31.4 g/dL (32.0-36.0); Mean Corpuscular Volume 85.1 fL (80.0-100.0); Monocytes # (auto) 1.4 10 ^3/uL (0-1.3); Monocytes % (auto) 8.4 % (0.0-12.0); Neutrophils # (auto) 13.7 10 ^3/uL (1.6-8.6); Neutrophils % (auto) 83.4 % (37.0-80.0); Nucleated Red Blood Cells % 0.2 %; Red Blood Cells 3.81 10^6/uL (4.0-5.20); Red Cell Distribution Width 17.2 % (11.8-14.3)
[2023-05-26 04:15] LABS: Alanine Aminotransferase 195 U/L (7-40); Albumin 2.3 g/dL (3.2-4.8); Alkaline Phosphatase 525 U/L (46-116); Anion Gap 11 (5-15); BUN/Creatinine Ratio 19.8 (10.0-20.0); Blood Urea Nitrogen 25 mg/dL (9-23); Calcium 7.5 mg/dL (8.7-10.4); Carbon Dioxide 17 mmol/L (20-30); Chloride 104 mmol/L (98-107); Glucose 344 mg/dL (74-106); Potassium 4.1 mmol/L (3.5-5.1); Sodium 132 mmol/L (136-145)
[2023-05-26 04:16] LABS: Aspartate Aminotransferase 533 U/L (13-40); Total Protein 4.3 g/dL (5.7-8.2)
[2023-05-26 07:14] LABS: Base Excess -9.6 mmol/L (-2.0-2.0)
[2023-05-26] MEDS ORDERED: CLINIMIX PER PHARMACY 0 ML IV SCH (12:30)
[2023-05-26] MEDS: FUROSEMIDE 40 MG/4 ML VIAL IV ONE (14:09)
[2023-05-26] MEDS: AMINO ACID INFUSION IN D10W 1,000 ML IV SCH (20:00)
[2023-05-26] MEDS: VASOPRESSIN 20 UNITS in SODIUM CHL 0.9% 99 ML IV SCH (20:30)
[2023-05-26] MEDS: PHENYLEPHRINE INJ 80 MG in SODIUM CHL 0.9% 242 ML IV SCH (20:30)
[2023-05-26 21:20] LABS: Base Excess -17.2 mmol/L (-2.0-2.0)
[2023-05-26] MEDS ORDERED: SODIUM BICARB 8.4% 50Meq/50ml SYR Vial IV ONE (21:30)
[2023-05-26] MEDS: SODIUM BICARB 8.4% 50Meq/50ml SYR Vial IV ONE (21:49)
[2023-05-26] MEDS: SODIUM BICARB 50mEq/50ml Vial 150 ML in D5W/SOD CHL 0.45% 1,000 ML IV SCH (21:50)
[2023-05-27] VITALS (96 sets, daily range): BP systolic 61–116; BP diastolic 36–75; PULSE 87–119; RESP 16–19; TEMP 98.4–99; O2SAT 96–100
[2023-05-27] MEDS ORDERED: DEXTROSE (50%) 50ML SYRG IV SCH
[2023-05-27] MEDS: ACCU-CHEK COMFORT CURVE STRIP VI SCH ×2 (00:12→03:43)
[2023-05-27] MEDS: InsuLIN REG 1unit/0.01ml Soln (100units/ml) SC SCH ×2 (00:17→03:43)
[2023-05-27 02:41] LABS: Basophils # (auto) 0 10 ^3/uL (0-0.2); Basophils % (auto) 0.1 % (0.0-2.0); Eosinophils # (auto) 0 10 ^3/uL (0-0.8); Hemoglobin 9.4 g/dL (12.2-16.2); Lymphocytes # (auto) 1.1 10 ^3/uL (0.4-5.4); Mean Corpuscular Hemoglobin 26.9 pg (28.0-32.0)
[2023-05-27 02:42] LABS: Eosinophils % (auto) 0.1 % (0.0-7.0); Lymphocytes % (auto) 4.8 % (10.0-50.0); Mean Corpuscular Hgb Conc. 30.3 g/dL (32.0-36.0); Monocytes # (auto) 2.1 10 ^3/uL (0-1.3); Monocytes % (auto) 8.9 % (0.0-12.0); Neutrophils # (auto) 20.3 10 ^3/uL (1.6-8.6); Neutrophils % (auto) 86.1 % (37.0-80.0); Red Blood Cells 3.48 10^6/uL (4.0-5.20); Red Cell Distribution Width 17.4 % (11.8-14.3); White Blood Cell 23.6 10^3/uL (4.4-10.8)
[2023-05-27 02:53] LABS: Alanine Aminotransferase 869 U/L (7-40); Albumin 1.8 g/dL (3.2-4.8); Alkaline Phosphatase 628 U/L (46-116); Anion Gap 13 (5-15); BUN/Creatinine Ratio 16.7 (10.0-20.0); Calcium 6.8 mg/dL (8.7-10.4); Carbon Dioxide 16 mmol/L (20-30); Chloride 104 mmol/L (98-107); Magnesium 2.2 mg/dL (1.6-2.6); Potassium 4.9 mmol/L (3.5-5.1); Sodium 133 mmol/L (136-145)
[2023-05-27 02:54] LABS: Phosphorus 7.8 mg/dL (2.4-5.1); Total Protein 3.5 g/dL (5.7-8.2)
[2023-05-27 02:59] LABS: Blood Urea Nitrogen 37 mg/dL (9-23)
[2023-05-27 03:00] LABS: Glucose 450 mg/dL (74-106)
[2023-05-27 03:05] LABS: Aspartate Aminotransferase 4723 U/L (13-40)
[2023-05-27 03:45] LABS: Anisocytosis Slight; Large Platelets FEW; Platelet Estimate Decreased
[2023-05-27] MEDS ORDERED: DEXTROSE (50%) 50ML SYRG IV PRN (03:45)
[2023-05-27 07:06] LABS: CMV IgG Antibody >10.00 U/mL (0.00-0.59); CMV IgM Antibody <30.0 AU/mL (0.0-29.9); Varicella Zoster IgG Antibody >4000 index (Immune >165)
[2023-05-27 10:39] LABS: INR 3.86 (0.9-1.15); Prothrombin Time 37.1 sec (9.3-11.8)
[2023-05-27] MEDS: SODIUM BICARB 50mEq/50ml Vial 150 ML in D5W 5% 1,000 ML IV SCH (13:33)
[2023-05-27] MEDS: VANCOMYCIN PER PHARMACY 0 MG IV STA (15:17)
[2023-05-27] MEDS ORDERED: ACYCLOVIR 10MG/KG Q8HR PER RX 0 ML IV SCH (15:30)
[2023-05-27] MEDS: VANCOMYCIN 1GM/200ML 200 ML IV ONE (16:03)
[2023-05-27 16:06] LABS: HSV-1 DNA CSF Negative (Negative); HSV-2 DNA Negative (Negative)
[2023-05-27] MEDS ORDERED: VANCOMYCIN PER PHARMACY 0 MG IV SCH (16:30)
[2023-05-27] MEDS: ACYCLOVIR SOD 50MG/ML 500 MG in SODIUM CHL 0.9% 250 ML IV SCH (20:00)
[2023-05-27] MEDS: cefTRIAXone 2GM/50ML D5W 50 ML IV SCH (21:17)
[2023-05-30 14:06] LABS: Aspergillus flavus Negative (Neg:<1:1); Aspergillus fumigatus Negative (Neg:<1:1); Aspergillus niger Negative (Neg:<1:1); Blastomyces Antibody DID Negative (Neg:<1:1)
== END 2023-05-28 02:19 | DRG 64 ==
LOC: EDBD 15:22 → ER 15:22 → TELE 19:57 → TELE-CENTR 22:44 → ICU WEST 05-24 16:59
PROVIDERS: ADMIT Internal Medicine; ATTEND Internal Medicine
PROC: 0BH17EZ Insertion of Endotracheal Airway into Trachea, Via Natural or Artificial Opening (ICD-10-PCS; principal; 2023-05-24)
PROC: 5A1945Z Respiratory Ventilation, 24-96 Consecutive Hours (ICD-10-PCS; 2023-05-24)
PROC: 05HA33Z Insertion of Infusion Device into Left Brachial Vein, Percutaneous Approach (ICD-10-PCS; 2023-05-24)
PROC: B54NZZA Ultrasonography of Left Upper Extremity Veins, Guidance (ICD-10-PCS; 2023-05-24)
PROC: 009U3ZX Drainage of Spinal Canal, Percutaneous Approach, Diagnostic (ICD-10-PCS; 2023-05-25)
PROC: 06HY33Z Insertion of Infusion Device into Lower Vein, Percutaneous Approach (ICD-10-PCS; 2023-05-25)
PROC: B54CZZA Ultrasonography of Left Lower Extremity Veins, Guidance (ICD-10-PCS; 2023-05-25)
DX: I63.40 Cerebral infarction due to embolism of unspecified cerebral artery (principal); A41.9 Sepsis, unspecified organism; G93.41 Metabolic encephalopathy; I21.A1 Myocardial infarction type 2; J96.01 Acute respiratory failure with hypoxia; R65.21 Severe sepsis with septic shock; I50.43 Acute on chronic combined systolic (congestive) and diastolic (congestive) heart failure; K72.00 Acute and subacute hepatic failure without coma; G00.9 Bacterial meningitis, unspecified; N30.00 Acute cystitis without hematuria; Z94.0 Kidney transplant status; C22.9 Malignant neoplasm of liver, not specified as primary or secondary; E72.20 Disorder of urea cycle metabolism, unspecified; E87.20 Acidosis, unspecified; G93.1 Anoxic brain damage, not elsewhere classified; I13.2 Hypertensive heart and chronic kidney disease with heart failure and with stage 5 chronic kidney disease, or end stage renal disease; A87.9 Viral meningitis, unspecified; R47.01 Aphasia; Z66 Do not resuscitate; F32.A Depression, unspecified; I25.10 Atherosclerotic heart disease of native coronary artery without angina pectoris; E11.22 Type 2 diabetes mellitus with diabetic chronic kidney disease; E11.65 Type 2 diabetes mellitus with hyperglycemia; D64.9 Anemia, unspecified; D69.6 Thrombocytopenia, unspecified; K76.82 Hepatic encephalopathy; E78.5 Hyperlipidemia, unspecified; E83.42 Hypomagnesemia; R74.01 Elevation of levels of liver transaminase levels; K21.9 Gastro-esophageal reflux disease without esophagitis; F17.200 Nicotine dependence, unspecified, uncomplicated; Z79.01 Long term (current) use of anticoagulants; Z98.61 Coronary angioplasty status; Z86.711 Personal history of pulmonary embolism; Z79.84 Long term (current) use of oral hypoglycemic drugs; Z79.4 Long term (current) use of insulin; Z79.624 Long term (current) use of inhibitors of nucleotide synthesis; Z99.2 Dependence on renal dialysis; Z88.6 Allergy status to analgesic agent; Z83.3 Family history of diabetes mellitus; Z80.3 Family history of malignant neoplasm of breast; Z82.3 Family history of stroke; Z86.718 Personal history of other venous thrombosis and embolism
CPT/HCPCS: 36415; 36600; 70450; 70551; 71045; 71275; 76705; 80053; 80061; 80307; 81001; 82140; 82378; 82805; 82945; 82962; 83036; 83605; 83615; 83735; 83880; 84100; 84157; 84443; 84484; 85007; 85025; 85027; 85384; 85610; 85730; 86606; 86612; 86635; 86644; 86645; 86698; 86787; 87040; 87070; 87081; 87086; 87205; 87529; 89051; 93005; 93306; 93886; 93970; 94002; 94003; 95819; C9113; G0378; J2250; J7507; J7517; Q9956